=== PATIENT | male | born 1955 | race Caucasian/White ===

== ENCOUNTER 2016-05-08 11:01 | Inpatient (IN) | payer SELFPAY ==
[2016-05-08] VITALS (14 sets, daily range): BP systolic 150–234; BP diastolic 78–146; PULSE 73–96; RESP 16–18; TEMP 97.6–98.6; O2SAT 95–98
[~2016-05-08] VITALS: Ht 175.3 cm; Wt 64.0 kg
[~2016-05-08 11:01] MED LIST: Z.0.NO CURRENT MEDS
[2016-05-08] MEDS ORDERED: LABETALOL HCL 100 MG/20 ML VIAL IV PUSH ONE ×2 (11:30→12:15)
[2016-05-08] MEDS: SODIUM CHLORIDE 0.9% FLUSH 5 ML FLUSH IVF PRN ×3 (11:39→14:38)
[2016-05-08 11:50] LABS: CHLORIDE 105 MEQ/L (98-107); SODIUM (NA) 140 MEQ/L (136-145)
[2016-05-08 11:51] LABS: APTT (PATIENT) 26.3 SEC (24.3-30.1); PROTHROMBIN TIME - PATIENT 10.9 SEC (9.8-11.6)
[2016-05-08 11:53] LABS: ANION GAP 8 MEQ/L (5-15); BICARBONATE 26.6 MEQ/L (21.0-32.0); BLOOD UREA NITROGEN 15 MG/DL (7-18)
[2016-05-08 11:54] LABS: POTASSIUM 4.5 MEQ/L (3.5-5.1)
[2016-05-08 11:57] LABS: GLOMERULAR FILTRATION RATE 77 ML/MIN (>89)
[2016-05-08 12:01] LABS: AUTOMATED NEUTROPHIL # 7.8 TH/MM3 (1.8-7.7); BASOPHIL # 0.1 TH/MM3 (0-0.2); BASOPHIL % 1.3 % (0.0-2.0); EOSINOPHIL # 0.2 TH/MM3 (0-0.4); EOSINOPHIL % 2.2 % (0.0-4.0); HEMATOCRIT 46.6 % (39.0-51.0); HEMO FLAGS DIFF FINAL; LYMPHOCYTE # 1.5 TH/MM3 (1.0-4.8); MEAN CELL VOLUME 95.4 FL (80.0-100.0); MEAN CORPUSCULAR HEMOGLOBIN 31.9 PG (27.0-34.0); MEAN CORPUSCULAR HGB CONC 33.5 % (32.0-36.0); NEUT % 74.5 % (16.0-70.0); PLATELET COUNT 184 TH/MM3 (150-450); RED BLOOD COUNT 4.88 MIL/MM3 (4.50-5.90); RED CELL DISTRIBUTION WIDTH 13.9 % (11.6-17.2); WHITE BLOOD COUNT 10.3 TH/MM3 (4.0-11.0)
--- NOTE | 2016-05-08 13:19 | PD ---
HPI Chief Complaint: Neuro Symptoms/ Deficits Time Seen by Provider: 11:11 Travel History International Travel<30 days: No Contact w/Intl Traveler<30days: No Traveled to known affect area: No History of Present Illness HPI Patient is a 60-year-old male with history of HTN, tobacco and alcohol abuse who presents emergency Department with neurologic symptoms. For the last 2 days patient notes that his left arm has been numb, tingly in his left arm and leg has been weak. He notes difficulty walking, describes as though he feels off-balance. He has not had any falls. Patient denies any known history of CVA , TIA. Patient does not have any word finding difficulties and has not noticed any facial weakness. His symptoms have been persistent and do not come and go. No chest pain, shortness of breath. PFSH Past Medical History Medical History: Denies Significant Hx Hypertension: Yes Past Surgical History Surgical History: No Previous Surgery Social History Alcohol Use: Yes (3-4 shots daily) Tobacco Use: Yes (1.5ppd) Substance Use: No Allergies-Medications (Allergen,Severity, Reaction): Coded Allergies: No Known Allergies (Verified , 05/08/16) Reported Meds & Prescriptions Reported Meds & Active Scripts Active Review of Systems Except as stated in HPI: all other systems reviewed are Neg Physical Exam Narrative GENERAL: Well-appearing male appearing older than stated age in no acute distress SKIN: Warm and dry. HEAD: Normocephalic. EYES: No scleral icterus. No injection or drainage. ENT: Mucous membranes pink and moist. NECK: Supple CARDIOVASCULAR: Regular rate and rhythm. No murmur appreciated. RESPIRATORY: No accessory muscle use. Clear to auscultation. Breath sounds equal bilaterally. GASTROINTESTINAL: Abdomen soft, non-tender, nondistended. MUSCULOSKELETAL: No obvious deformities. No edema. NEUROLOGICAL: Awake and alert. Answers questions and follows commands appropriately. No obvious cranial nerve deficits. 4+ out of 5 strength in the left upper extremity versus 5 out of 5 in the right, this is slightly noticeable on exam. Patient has subjective paresthesias of the left arm greater than left leg. He is able ambulate without any difficulty without evidence of ataxia. Normal speech. PSYCHIATRIC: Appropriate mood and affect; insight and judgment normal. Data Data Last Documented VS Vital Signs Date Time Temp Pulse Resp B/P Pulse Ox O2 Delivery O2 Flow Rate FiO2 05/08/16 14:34 174/110 05/08/16 14:17 74 18 97 Room Air 05/08/16 11:07 98.6 Orders Electrocardiogram (05/08/16 11:16) Prothrombin Time / Inr (Pt) (05/08/16 11:16) Act Partial Throm Time (Ptt) (05/08/16 11:16) Complete Blood Count With Diff (05/08/16 11:16) Basic Metabolic Panel (Bmp) (05/08/16 11:16) Troponin I (05/08/16 11:16) Ecg Monitoring (05/08/16 11:16) Iv Access Insert/Monitor (05/08/16 11:16) Oximetry (05/08/16 11:16) Sodium Chloride 0.9% Flush (Ns Flush) (05/08/16 11:30) Mri Brain W/O Contrast (05/08/16 ) Mra Brain W/O Contrast (Cow) (05/08/16 ) Labetalol Inj (Trandate Inj) (05/08/16 11:30) Labetalol Inj (Trandate Inj) (05/08/16 12:15) Hydralazine Inj (Apresoline Inj) (05/08/16 14:45) Aspirin (Aspirin) (05/08/16 14:45) Labs Laboratory Tests Test 05/08/16 11:29 White Blood Count 10.3 TH/MM3 Red Blood Count 4.88 MIL/MM3 Hemoglobin 15.6 GM/DL Hematocrit 46.6 % Mean Corpuscular Volume 95.4 FL Mean Corpuscular Hemoglobin 31.9 PG Mean Corpuscular Hemoglobin 33.5 % Concent Red Cell Distribution Width 13.9 % Platelet Count 184 TH/MM3 Mean Platelet Volume 9.0 FL Neutrophils (%) (Auto) 74.5 % Lymphocytes (%) (Auto) 15.0 % Monocytes (%) (Auto) 7.0 % Eosinophils (%) (Auto) 2.2 % Basophils (%) (Auto) 1.3 % Neutrophils # (Auto) 7.8 TH/MM3 Lymphocytes # (Auto) 1.5 TH/MM3 Monocytes # (Auto) 0.7 TH/MM3 Eosinophils # (Auto) 0.2 TH/MM3 Basophils # (Auto) 0.1 TH/MM3 CBC Comment DIFF FINAL Differential Comment Prothrombin Time 10.9 SEC Prothromb Time International 1.0 RATIO Ratio Activated Partial 26.3 SEC Thromboplast Time Sodium Level 140 MEQ/L Potassium Level 4.5 MEQ/L Chloride Level 105 MEQ/L Carbon Dioxide Level 26.6 MEQ/L Anion Gap 8 MEQ/L Blood Urea Nitrogen 15 MG/DL Creatinine 0.99 MG/DL Estimat Glomerular Filtration 77 ML/MIN Rate Random Glucose 106 MG/DL Calcium Level 8.5 MG/DL Troponin I LESS THAN 0.02 NG/ML MDM Medical Decision Making Medical Screen Exam Complete: Yes Emergency Medical Condition: Yes Medical Record Reviewed: Yes Differential Diagnosis 60-year-old male with history of HTN, tobacco/alcohol abuse here with complaint of 2 days of left arm/leg numbness and tingling and weakness. His neurologic examination is near normal with only minimal left upper extremity weakness. Differential includes CVA, TIA, radiculopathy, ACS. Patient is extremely hypertensive and hypertensive urgency, encephalopathy on the differential. Narrative Course Patient placed on monitor, IV established and blood obtained. Twelve-lead EKG shows sinus rhythm with PVCs, evidence of LVH. Patient was given 20 mg labetalol IV with improvement of blood pressure from 234/146-190/112. CBC, BMP , coags, troponin were obtained and unremarkable. MRI/MRA of the brain showed 1 cm area of acute infarct in the deep white matter of the right hemisphere adjacent to the junction of the body and the occipital horn of the lateral ventricle. Patient given aspirin and will be admitted to medicine for further management. Given the duration of his symptoms he is certainly outside the window for thrombolysis. Blood pressure remains elevated, given 20 mg hydralazine IV. Critical Care Narrative Aggregate critical care time was 45 minutes. Time to perform other separately billable procedures was not included in the critical care time. My time did not include minutes spent treating any other patients simultaneously or on activities that did not directly contribute to the patient's treatment. The services I provided to this patient were to treat and/or prevent clinically significant deterioration that could result in: Neurologic decompensation, cardiopulmonary decompensation, , disability I provided critical care services requiring my management, as noted below: Chart data review, documentation time, medication orders and management, vital sign assessments/reviewing monitor data, ordering and reviewing lab tests, ordering and interpreting/reviewing x-rays and diagnostic studies, care of the patient and discussion of the patient with the admitting physicians. Diagnosis Primary Impression: Acute CVA (cerebrovascular accident) Additional Impression: Hypertensive urgency Admitting Information Admitting Physician Requests: Admit Scripts No Active Prescriptions or Reported Meds Denise Reynoso MD May 08, 2016 13:19
--- NOTE | 2016-05-08 14:34 | RADHPO ---
EXAM DATE/TIME: 05/08/2016 13:57 [facility] COMPARISON: No previous studies available for comparison. INDICATIONS : Left sided weakness. MEDICAL HISTORY : Hypertension. Smoker. SURGICAL HISTORY : Tonsillectomy. ENCOUNTER: Initial ACUITY: 1 day PAIN SCORE: 0/10 LOCATION: cranial TECHNIQUE: Multiplanar, multisequence MRI of the brain was performed without contrast. FINDINGS: Patient demonstrates some minimal periventricular and microvascular ischemic deep white matter demyel inization. In deep white matter of right hemisphere adjacent to the junction of the body and occipita l horn of the lateral ventricle there is a 1 cm area of diffusion abnormality consistent with acute i nfarcts. No intracranial hemorrhage or extracerebral defect or mass effect. CONCLUSION: 1 cm area of acute infarct deep white matter right hemisphere adjacent to the junction of the body an d occipital horn the lateral ventricle. Thai Lopez MD on May 08, 2016 at 14:30 Board Certified Radiologist. This report was verified electronically.
[2016-05-08] MEDS ORDERED: ASPIRIN 325 MG TAB PO ONE (14:45)
[2016-05-08] MEDS ORDERED: hydrALAZINE HCL 20 MG/ML VIAL IV PUSH ONE (14:45)
[2016-05-08] MEDS ORDERED: SODIUM CHLORIDE 0.9% FLUSH 5 ML FLUSH IVF PRN (15:00)
[2016-05-08] MEDS ORDERED: GLUCAGON 1 MG/ML VIAL IM/SQ PRN (15:00)
[2016-05-08] MEDS ORDERED: DEXTROSE 50% IN WATER 50 ML VIAL(D50) IV PUSH PRN (15:00)
[2016-05-08] MEDS ORDERED: ENALAPRILAT 1.25 MG/ML VIAL IV PRN (15:00)
[2016-05-08] MEDS ORDERED: LABETALOL HCL 100 MG/20 ML VIAL IV PRN (15:00)
--- NOTE | 2016-05-08 15:01 | RADHPO ---
EXAM DATE/TIME: 05/08/2016 13:57 [facility] COMPARISON: MRI BRAIN W/O CONTRAST, May 08, 2016, 13:57. INDICATIONS : CVA. MEDICAL HISTORY : Hypertension. SURGICAL HISTORY : Tonsillectomy. ENCOUNTER: Initial ACUITY: 1 day PAIN SCORE: 0/10 LOCATION: cranial Please note a normal MRA of the brain does not entirely exclude the possibility of a small aneurysm, nor the possibility of distal intracranial vessel disease. TECHNIQUE: 3D time of flight MRA was performed. Source images, multiplanar STS MIP, and 3D volume MIP reconstru ctions were reviewed. FINDINGS: There is excellent visualization of the major intracranial arteries out to the second-order branch ve ssels. There is no evidence for aneurysm, vessel truncation or stenosis, and no evidence for vascula r malformation. The left posterior cerebral artery has its origin off the anterior surface CONCLUSION: Normal examination. Thai Lopez MD on May 08, 2016 at 14:57 Board Certified Radiologist. This report was verified electronically.
[2016-05-08 15:25] LABS: AST (GOT) 34 U/L (15-37)
[2016-05-08 15:26] LABS: ALT (GPT) 30 U/L (12-78)
[2016-05-08] MEDS: INSULIN ASPART SUPPLEMENTAL SCALE SQ SCH ×2 (16:00→20:48)
--- NOTE | 2016-05-08 18:25 | HHI.HP ---
[facility] No Primary Care Physician Admission Diagnosis acute CVA, hypertensive urgency Diagnoses: Travel History International Travel<30 Days: No Contact w/Intl Traveler <30 Da: No Traveled to Known Affected Are: No History of Present Illness This is a pleasant 60-year-old male with no significant past medical history of the next 13-ooxf-kiiq history of tobacco use who presents to the ER today with 3 day history of left upper extremity paresthesias and weakness and also some left lower extremity weakness. The patient felt that his left arm was slightly weaker today and he could not reach up to brush his hair and so he presented to the emergency department. The patient denied any slurred speech, or difficulty word finding. No headaches or blurred vision. No dizziness. Emergency department MRI was obtained which revealed an acute right hemispheric CVA 1 cm in size. Review of Systems Except as stated in HPI: all other systems reviewed are Neg Past Family Social History Past Medical History None Reported Medications He takes an Aleve daily. Allergies: Coded Allergies: No Known Allergies (Verified , 05/08/16) Family History His mother did have high blood pressure. No family history of stroke. Social History The patient works as a commercial trailer truck driver. He has a 10-cogh-bqim history of smoking. Physical Exam Vital Signs Vital Signs Date Time Temp Pulse Resp B/P Pulse Ox O2 Delivery O2 Flow Rate FiO2 05/08/16 17:52 85 18 153/78 98 Room Air 05/08/16 15:47 80 18 195/100 98 05/08/16 14:34 174/110 05/08/16 14:17 74 18 210/116 97 Room Air 05/08/16 12:11 73 18 190/112 98 Room Air 05/08/16 12:02 82 18 195/109 95 Room Air 05/08/16 11:45 78 18 194/105 97 Room Air 05/08/16 11:33 98 Room Air 05/08/16 11:30 212/100 05/08/16 11:20 96 18 234/146 98 Room Air 05/08/16 11:07 98.6 94 16 98 Physical Exam GENERAL: This is a well-nourished, well-developed lean male patient, in no apparent distress. SKIN: No rashes, ecchymoses or lesions. Cool and dry. HEAD: Atraumatic. Normocephalic. EYES: Pupils equal round and reactive. Extraocular motions intact. No scleral icterus. No injection or drainage. ENT: Throat without erythema, tonsillar hypertrophy or exudate. Uvula midline. Airway patent. NECK: Trachea midline. No JVD or lymphadenopathy. CARDIOVASCULAR: Regular rate and rhythm without murmurs, gallops, or rubs. RESPIRATORY: Clear to auscultation. Breath sounds equal bilaterally. No wheezes , rales, or rhonchi. GASTROINTESTINAL: Abdomen soft, non-tender, nondistended. Bowel sounds present. MUSCULOSKELETAL: Extremities without clubbing, cyanosis, or edema. NEUROLOGICAL: Awake and alert. Cranial nerves II through XII intact. Motor and sensory grossly within normal limits. He has mildly decreased kiln tender strength on the left hand, and left hip flexor is slightly decreased as compared to the right but still 5 out of 5 in all muscle groups. Normal speech. Laboratory Laboratory Tests Test 05/08/16 11:29 White Blood Count 10.3 Red Blood Count 4.88 Hemoglobin 15.6 Hematocrit 46.6 Mean Corpuscular Volume 95.4 Mean Corpuscular Hemoglobin 31.9 Mean Corpuscular Hemoglobin 33.5 Concent Red Cell Distribution Width 13.9 Platelet Count 184 Mean Platelet Volume 9.0 Neutrophils (%) (Auto) 74.5 Lymphocytes (%) (Auto) 15.0 Monocytes (%) (Auto) 7.0 Eosinophils (%) (Auto) 2.2 Basophils (%) (Auto) 1.3 Neutrophils # (Auto) 7.8 Lymphocytes # (Auto) 1.5 Monocytes # (Auto) 0.7 Eosinophils # (Auto) 0.2 Basophils # (Auto) 0.1 CBC Comment DIFF FINAL Differential Comment Prothrombin Time 10.9 Prothromb Time International 1.0 Ratio Activated Partial 26.3 Thromboplast Time Sodium Level 140 Potassium Level 4.5 Chloride Level 105 Carbon Dioxide Level 26.6 Anion Gap 8 Blood Urea Nitrogen 15 Creatinine 0.99 Estimat Glomerular Filtration 77 Rate Random Glucose 106 Calcium Level 8.5 Aspartate Amino Transf 34 (AST/SGOT) Alanine Aminotransferase 30 (ALT/SGPT) Troponin I LESS THAN 0.02 Result Diagram: 05/08/16 1129 05/08/16 1129 Imaging Last Impressions Head Magnetic Resonance Angiography 05/08/16 0000 Signed Impressions: Service Date/Time: Sunday, May 08, 2016 13:57 - CONCLUSION: Normal examination. Thai Lopez MD Brain MRI 05/08/16 0000 Signed Impressions: Service Date/Time: Sunday, May 08, 2016 13:57 - CONCLUSION: 1 cm area of acute infarct deep white matter right hemisphere adjacent to the junction of the body and occipital horn the lateral ventricle. Thai Lopez MD Assessment and Plan Problem List: (1) Acute CVA (cerebrovascular accident) ICD Code: I63.9 Status: Acute (2) Hypertensive urgency ICD Code: I16.0 Status: Acute Assessment and Plan -Acute right hemispheric CVA, 1 cm in the lateral horn - symptoms started 3 days ago so he was out of the window for TPA. Fortunately his physical exam reveals mild weakness in the left upper and lower extremity. We will proceed with CVA workup to include telemetry, Doppler carotids, echo. We'll consult neurology and place him on aspirin for now. The patient was counseled on smoking cessation. Consult PT OT and ST. Nicotine patch. -Elevated blood pressure with history of hypertension. Permissive hypertension for now. -DVT prophylaxis with SCDs. Jalyn Kaufman MD May 08, 2016 18:25
[2016-05-08 20:04] LABS: HEMOGLOBIN A1a 0.9 %; HEMOGLOBIN A1b 0.6 %
[2016-05-08 20:05] LABS: HEMOGLOBIN Ao 86.8 %; HEMOGLOBIN P3 3.5 %
[2016-05-08] MEDS ORDERED: NICOTINE 21 MG/24 HR PATCH TD ONE (20:30)
[2016-05-08] MEDS ORDERED: REMOVE OLD NICODERM (NICOTINE) PATCH TD SCH (21:00)
[2016-05-08] MEDS ORDERED: ATORVASTATIN 10 MG TAB PO SCH (21:00)
[2016-05-08] MEDS: SODIUM CHLORIDE 0.9% FLUSH 5 ML FLUSH IVF SCH (21:24)
--- NOTE | 2016-05-08 22:12 | RADHPO ---
EXAM DATE/TIME: 05/08/2016 20:09 [facility] COMPARISON: No previous studies available for comparison. INDICATIONS : Cerebrovascular accident. MEDICAL HISTORY : Cerebrovascular disease. Hypertension. ETOH abuse. SURGICAL HISTORY : None. ENCOUNTER: Initial ACUITY: 1 day PAIN SCORE: 0/10 LOCATION: Bilateral neck PEAK SYSTOLIC VELOCITIES (cm/sec): ICA/CCA RATIO: Right: 1.1 Left: 1.0 ICA: Right: 87 Left: 89 CCA: Right: 82 Left: 87 ECA: Right: 103 Left: 100 VERTEBRAL: Right: 29 antegrade Left: 49 antegrade Elevated flow velocities and ICA/CCA ratios have been found to correlate with increased degrees of vessel stenosis, calculated as percentage of diameter relative to a normal segment of distal ICA/CCA FINDINGS: RIGHT CAROTID: Minimal plaque of the bulb and proximal internal carotid artery. LEFT CAROTID: Minimal plaque of the bulb and proximal internal carotid artery. VERTEBRAL ARTERIES: Antegrade flow is seen in both vertebral arteries. MISCELLANEOUS: None. CONCLUSION: Very mild atherosclerotic plaque of both carotid bifurcations. No hemodynamically significant narrowi ng. Wilson Elaine MD on May 08, 2016 at 22:09 Board Certified Radiologist. This report was verified electronically.
[2016-05-09] VITALS (7 sets, daily range): BP systolic 164–184; BP diastolic 70–116; PULSE 72–80; RESP 18–20; TEMP 97.5–97.9; O2SAT 96–98
[2016-05-09] MEDS: INSULIN ASPART SUPPLEMENTAL SCALE SQ SCH ×2 (06:22→11:00)
[2016-05-09 07:03] LABS: AUTOMATED NEUTROPHIL # 5.1 TH/MM3 (1.8-7.7); BASOPHIL # 0.1 TH/MM3 (0-0.2); BASOPHIL % 0.8 % (0.0-2.0); EOSINOPHIL # 0.3 TH/MM3 (0-0.4); HEMO FLAGS DIFF FINAL; LYMPH % 23.3 % (9.0-44.0); LYMPHOCYTE # 1.9 TH/MM3 (1.0-4.8); MEAN CELL VOLUME 96.8 FL (80.0-100.0); MEAN CORPUSCULAR HGB CONC 33.1 % (32.0-36.0); MONO % 9.8 % (0.0-8.0); NEUT % 62.1 % (16.0-70.0); PLATELET COUNT 170 TH/MM3 (150-450); RED BLOOD COUNT 4.76 MIL/MM3 (4.50-5.90); RED CELL DISTRIBUTION WIDTH 14.3 % (11.6-17.2); WHITE BLOOD COUNT 8.2 TH/MM3 (4.0-11.0)
[2016-05-09 07:12] LABS: BICARBONATE 27.4 MEQ/L (21.0-32.0)
--- NOTE | 2016-05-09 08:06 | MB ---
cc: RUBIO ADRIAN M.D. DATE OF CONSULTATION 05/08/2016 DATE OF 1955 AGE [age] years old REASON FOR CONSULTATION Stroke. HISTORY OF PRESENT ILLNESS The patient is a pleasant 60-year-old male without a significant medical history, a smoker who comes in with a three-day history of left upper extremity weakness, left lower extremity weakness that started Sunday. He did not come to the hospital because he thought it would get better. No slurring of speech. He was having a little issue walking. MRI did show a small 1 cm deep white matter right hemispheric stroke. 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 He was to obtain health insurance at that time and to get a primary care. PAST MEDICAL HISTORY Denies. MEDICATIONS Aleve p.r.n. ALLERGIES None reported. FAMILY HISTORY History of hypertension in the mother. SOCIAL HISTORY 1 to 1-1/2 packs per day. A couple of ounces of alcohol daily. PHYSICAL EXAMINATION VITAL SIGNS: Temperature is 98.6, pulse 85, respiratory rate 18, blood pressure 153/78, he came in with a blood pressure of 234/146. NECK: Supple. No bruits. HEART: Regular. LUNGS: Clear. NEUROLOGIC: He is awake, alert. He is oriented and fluent. Pupils reactive. Visual shah full. Face symmetrical. Tongue midline. Normal facial sensation. Motor-buchanan he does exhibit a mild drift and leg lag on the left side with decreased random alternating movements. Hsblvh-ewzn-cbijeu: He does not pass-point but he is clumsier with fine motor movements. Child Care Aide is weaker as well. Left toe is upgoing. DTRs are slightly brisker on the left than on the right. Sensory otherwise is normal. Gait is withheld at this time. LABORATORY DATA Labs are reviewed. CBC is really unremarkable. Coag panel is normal. Chemistries: GFR 77. Hemoglobin A1c is pending. MRI As stated, he has a right deep white matter 1 cm infarct. MRA levelock of Rios was negative. IMPRESSION 1. Right hemispheric stroke likely due to uncontrolled hypertension. 2. Tobacco abuse. RECOMMENDATIONS 1. Lipid panel. Start him on a statin should his LDL be elevated. 1. Get a 2-D echo. 2. Carotid ultrasound. 3. PT evaluation. Occupational therapy evaluation. 4. I would watch him on a monitor telemetry-buchanan to make sure he does not go into A-fib. 5. Placed on aspirin, full dose. 6. Nicotine patch. 7. Permissible hypertension. 8. If stable, likely discharge in the next 24-48 hours. 9. Continue also DVT prophylaxis with subcu heparin and SCDs. MD FIORDALIZA Munoz/JEANNETTE /6:48 PM /7:53 AM
[2016-05-09] MEDS: SODIUM CHLORIDE 0.9% FLUSH 5 ML FLUSH IVF SCH (09:00)
[2016-05-09] MEDS ORDERED: REMOVE OLD NICODERM (NICOTINE) PATCH TD SCH (09:00)
[2016-05-09] MEDS ORDERED: NICOTINE 21 MG/24 HR PATCH TD SCH (09:00)
[2016-05-09] MEDS ORDERED: ASPIRIN 325 MG TAB PO SCH (09:00)
[2016-05-09 09:53] LABS: HDL CHOLESTEROL 85.6 MG/DL (40.0-60.0)
[2016-05-09] MEDS ORDERED: HYDROCHLOROTHIAZIDE 25 MG TAB PO SCH (12:00)
--- NOTE | 2016-05-09 12:21 | EC ---
Study Study Date:05/09/2016 STUDY CONCLUSIONS SUMMARY - Left ventricle: The cavity size was normal. Wall thickness was increased in a pattern of mild LVH. Systolic function was normal. The estimated ejection fraction was in the range of 55% to 60%. Wall motion was normal; there were no regional wall motion abnormalities. - Aortic valve: Valve area: 2.13cm^2 (Vmax). - Tricuspid valve: Mild regurgitation. - Pulmonary arteries: PA peak pressure: 33mm Hg (S). If LV function is below 40, please consider prescribing an ACEI or ARB or document rationale for non-use. PROCEDURE DATA STUDY STATUS: Elective. Procedure: Transthoracic echocardiography. Image quality was suboptimal. The study was technically limited due to poor acoustic window availability. Scanning was performed from the parasternal, apical, and subcostal acoustic windows. Study completion: The patient tolerated the procedure well. Transthoracic echocardiography. M-mode, complete 2D, complete spectral Doppler, and color Doppler. Height: Height: 69in. Weight: Weight: 140.7lb. Body mass index: BMI: 20.8kg/m^2. Body surface area: BSA: 1.78m^2. Patient status: Inpatient. CARDIAC ANATOMY LEFT VENTRICLE: The cavity size was normal. Wall thickness was increased in a pattern of mild LVH. Systolic function was normal. The estimated ejection fraction was in the range of 55% to 60%. Wall motion was normal; there were no regional wall motion abnormalities. AORTIC VALVE: Trileaflet; normal thickness leaflets. Doppler: Transvalvular velocity was within the normal range. There was no stenosis. No regurgitation. Valve area: 2.13cm^2 (Vmax). Indexed valve area: 1.2cm^2/m^2 (Vmax). AORTA: Aortic root: The aortic root was normal in size. MITRAL VALVE: Structurally normal valve. Doppler: Transvalvular velocity was within the normal range. There was no evidence for stenosis. No regurgitation. LEFT ATRIUM: The atrium was normal in size. RIGHT VENTRICLE: The cavity size was normal. Wall thickness was normal. PULMONIC VALVE: Doppler: Transvalvular velocity was within the normal range. There was no evidence for stenosis. No regurgitation. TRICUSPID VALVE: Structurally normal valve. Doppler: Transvalvular velocity was within the normal range. Mild regurgitation. PULMONARY ARTERY: The main pulmonary artery was normal-sized. Systolic pressure was within the normal range. RIGHT ATRIUM: The atrium was normal in size. PERICARDIUM: There was no pericardial effusion. SYSTEMIC VEINS: Inferior vena cava: The vessel was normal in size. Patient weight: 140.7lb _Ejection fraction:_ 65-75% _Fractional shortening:_ 32% up to 5Kg 5-11.5Kg 11.6-22.9Kg 23-45Kg 45-57Kg Aortic Root 7-13 <17 13-22 17-27 17-27 LA diam 6-13 <23 24-38 33-47 37-40 RVID 10-17 7-15 7-15 7-18 8-17 LVIDd 12-22 <32 24-38 33-47 37-40 LVPW 2-4 3-6 5-7 6-8 7-8 IVS 2-4 3-6 5-7 6-8 7-8 BASIC MEASUREMENTS ADULT NORMAL Left ventricle LV internal dimension, ED, chordal *37 mm 43-52 level, PLAX LV internal dimension, ES, chordal 25.4 mm 23-38 level, PLAX Fractional shortening, chordal level, 31 % >29 PLAX LV posterior wall thickness, ED 7.95 mm IVS/LVPW ratio, ED 0.94 <1.3 Ventricular septum Septal thickness, ED 7.46 mm Aortic valve Leaflet separation 18 mm 15-26 BASIC MEASUREMENTS ADULT NORMAL Aortic valve Leaflet separation 18 mm 15-26 Aorta Root diameter, ED 29 mm 20-37 Left atrium Anterior-posterior dimension, ES 26 mm 19-40 Anterior-posterior dimension index, ES 1.46 cm/m^2 <2.2 LA/aortic root ratio 0.9 DOPPLER MEASUREMENTS ADULT NORMAL Main pulmonary artery Pressure, S *33 mm Hg =30 Aortic valve Peak velocity, S 136 cm/s Valve area, Vmax 2.13 cm^2 Valve area index, Vmax 1.2 cm^2/m^2 Mitral valve Peak E-wave velocity 57.3 cm/s Peak A-wave velocity 65.6 cm/s Deceleration time 218 ms 150-230 Peak E/A ratio 0.9 Tricuspid valve Regurgitant peak velocity 259 cm/s Peak RV-RA gradient, S 27 mm Hg Maximal regurgitant velocity 259 cm/s Systemic veins Estimated CVP 10 mm Hg Right ventricle RV pressure, S *37 mm Hg <30 Pulmonic valve Peak velocity, S 93.7 cm/s LEGEND: Mean values are shown as u=mean value. Asterisk (*) woodson values outside specified normal range. Prepared and signed by Naveen Elena [id number]
--- NOTE | 2016-05-09 13:05 | HHI.PR ---
Subjective Remarks The patient has no further neurologic symptoms. He ambulated well with physical therapy. He was shown home therapies by occupational therapy. Objective Vitals Vital Signs Date Time Temp Pulse Resp B/P Pulse Ox O2 Delivery O2 Flow Rate FiO2 05/09/16 08:00 97.5 80 18 184/116 96 05/09/16 07:00 76 05/09/16 04:00 97.6 80 20 164/70 98 05/09/16 00:49 98 05/09/16 00:45 97.9 72 20 182/74 98 05/09/16 00:36 79 05/08/16 23:10 97 Room Air 05/08/16 23:10 97.6 75 18 157/87 97 Room Air 05/08/16 21:10 77 18 150/88 97 Room Air 05/08/16 19:10 98.0 81 18 158/87 96 Room Air 05/08/16 19:10 18 96 Room Air 05/08/16 17:52 85 18 153/78 98 Room Air 05/08/16 15:47 80 18 195/100 98 05/08/16 14:34 174/110 05/08/16 14:17 74 18 210/116 97 Room Air I/O 05/08/16 05/08/16 05/08/16 05/09/16 05/09/16 05/09/16 07:00 15:00 23:00 07:00 15:00 23:00 Intake Total 320 ml 0 ml Balance 320 ml 0 ml Intake Oral 320 ml 0 ml IV Total 0 ml Result Diagram: 05/09/16 0610 05/09/16 0610 Objective Remarks GENERAL: Well-nourished, well-developed patient. SKIN: Warm and dry. HEAD: Normocephalic. EYES: No scleral icterus. No injection or drainage. NECK: Supple, trachea midline. No JVD or lymphadenopathy. CARDIOVASCULAR: Regular rate and rhythm without murmurs, gallops, or rubs. RESPIRATORY: Breath sounds equal bilaterally. No accessory muscle use. GASTROINTESTINAL: Abdomen soft, non-tender, nondistended. EXTREMITIES: No cyanosis, or edema. NEUROLOGICAL: Awake, alert, and oriented x 3. Normal speech. Very mild weakness in the left upper and left lower extremity but essentially 5 out of 5 in all muscle groups. A/P Problem List: (1) Acute CVA (cerebrovascular accident) ICD Code: I63.9 Status: Acute (2) Hypertensive urgency ICD Code: I16.0 Status: Acute Assessment and Plan -Acute right hemispheric CVA, 1 cm in the deep white matter- symptoms started 3 days ago so he was out of the window for TPA. Fortunately he has only mild weakness in the left upper and lower extremity. He is ambulating well with physical therapy and did well with occupational therapy. He has been monitored on telemetry overnight and has remained in normal sinus rhythm. Doppler carotids are negative for stenosis. Echocardiogram is pending. His risk factors include uncontrolled high blood pressure and tobacco use. He has excellent lipid profile with high HDL and low LDL. He is to stay on aspirin 325 mg daily. Smoking cessation was counseled to the patient. We will start him on HCTZ for the high blood pressure. Continue nicotine patch. He may be discharged home this afternoon after the 2-D echocardiogram is read. We will try to get him set up at the [facility] so he has a primary care physician for follow-up. -DVT prophylaxis with SCDs. Jalyn Kaufman MD May 09, 2016 13:05
[2016-05-09] MEDS ORDERED: ASPI325T PO (15:56)
[2016-05-09] MEDS ORDERED: HYDR25TA5 PO (15:56)
[2016-05-09] MEDS ORDERED: NICO21DI2 TD (15:56)
--- NOTE | 2016-05-09 16:35 | EKG ---
Date Performed: 05/08/2016 Time Performed: 11:18:14 PTAGE: 60 years EKG: Sinus tachycardia with sinus arrhythmia with PVC(s) Possible left atrial abnormality Left v entricular hypertrophy ST junctional depression is nonspecific Abnormal ECG NO PREVIOUS TRACING DOCTOR: Cash Pierson Interpretating Date/Time 05/09/2016 16:33:35
[2016-05-11] MEDS ORDERED: HYDR25TA5 PO (14:37)
[2016-08-23] MEDS ORDERED: HYDR25TA5 PO (10:57)
[2016-08-23] MEDS ORDERED: LISI10TA3 PO (11:36)
== END 2016-05-09 16:57 | disposition home or self-care (01) | DRG 65 ==
LOC: PHED 11:01 → PHEDA 14:44 → PHEDH 18:39 → PH3A 05-09 00:31
PROVIDERS: ADMIT Family Medicine; ATTEND Family Medicine
DX: I63.9 Cerebral infarction, unspecified (principal); G81.94 Hemiplegia, unspecified affecting left nondominant side; I16.0 Hypertensive urgency; I10 Essential (primary) hypertension; F17.210 Nicotine dependence, cigarettes, uncomplicated; F10.10 Alcohol abuse, uncomplicated
CPT/HCPCS: 70544; 70551; 80048; 80061; 82948; 83036; 84450; 84460; 84484; 85025; 85610; 85730; 93005; 93306; 93880; 96374; 96375; 96376; J0360